=== PATIENT | male | born 1980 | race Caucasian/White ===

== ENCOUNTER 2017-10-05 13:03 | Emergency (ER) | payer MEDICAID ==
[2017-10-05 13:14] VITALS: BP 141/90
--- NOTE | 2017-10-05 15:11 | EDM.PDOC ---
ED HPI GENERAL MEDICAL PROBLEM - General Chief Complaint: Abdominal Pain Stated Complaint: RIB PAIN Time Seen by Provider: 10/05/17 14:00 History Limitations: Reports: Other (Pt left AMA before seen by provider) - History of Present Illness INITIAL COMMENTS - FREE TEXT/NARRATIVE: PT LEFT AMA BEFORE BEING SEEN BY PROVIDER Right Upper Abdominal Pain Score (Numeric/FACES): 8 - Related Data Allergies Allergy/AdvReac Type Severity Reaction Status Date / Time No Known Allergies Allergy Verified 11/21/15 11:30 Home Meds: Home Meds . [No Known Home Meds] 10/05/17 [History] Past Medical History - Past Health History Medical/Surgical History: Denies Medical/Surgical History Psychiatric History: Reports: Bipolar Social & Family History - Family History Family Medical History: Noncontributory - Tobacco Use Smoking Status *Q: Never Smoker - Recreational Drug Use Recreational Drug Use: Yes Drug Use in Last 12 Months: Yes Recreational Drug Type: Reports: Marijuana/Hashish ED ROS GENERAL - Review of Systems Review Of Systems: Unable To Obtain (pt left AMA before being seen by provider) ED EXAM, GI/ABD - Physical Exam Exam: Not Obtained (pt left AMA before being seen) Course - Vital Signs Last Recorded V/S: Last Vital Signs Temp 98.6 F 10/05/17 13:11 Pulse 83 10/05/17 13:11 Resp 18 10/05/17 13:11 BP 141/90 H 10/05/17 13:11 Pulse Ox 100 10/05/17 13:11 Departure - Departure Time of Disposition: 14:00 Disposition: Eloped 07 Condition: Undetermined Clinical Impression: Abdominal pain - Discharge Information *PRESCRIPTION DRUG MONITORING PROGRAM REVIEWED*: Not Applicable *COPY OF PRESCRIPTION DRUG MONITORING REPORT IN PATIENT JUVE: Not Applicable Referrals: PCP,None [Primary Care Provider] - Forms: Refusal of Care AMA
== END 2017-10-05 15:00 | disposition left against medical advice (07) ==
LOC: JD.ED 13:03
DX: Z53.21 Procedure and treatment not carried out due to patient leaving prior to being seen by health care provider (principal)